=== PATIENT | male | born 1980 | race Caucasian/White ===

== ENCOUNTER 2019-01-08 06:47 | Day surgery (SDC) | payer OTHER, MEDICARE ==
[~2019-01-08] VITALS: Ht 172.7 cm; Wt 118.2 kg
[~2019-01-08 06:47] MED LIST: RINGERS SOLUTION,LACTATED 1,000 ML IV ONE
[2019-01-08] MEDS ORDERED: RINGERS SOLUTION,LACTATED 1,000 ML IV ONE (07:00)
[2019-01-08] MEDS ORDERED: MULT1TAB66 PO (07:11)
[2019-01-08] MEDS ORDERED: LORA1TAB3 PO (07:11)
[2019-01-08] MEDS ORDERED: RISP.5 PO (07:11)
[2019-01-08] MEDS ORDERED: HALO10 PO (07:11)
[2019-01-08] MEDS ORDERED: BENZ1TAB10 PO (07:11)
[2019-01-08] MEDS ORDERED: METF-960 PO (07:12)
[2019-01-08] MEDS ORDERED: SODIUM CHLORIDE 0.9% 1,000 ML IV ONE (08:05)
[2019-01-08 08:24] LABS: GLUCOMETER DEV NAME(LOC) PACU.; GLUCOSE,POINT OF CARE 123 MG/DL (70-110)
[2019-01-08] MEDS ORDERED: SUGAMMADEX SODIUM 200 MG/2 ML VIAL IVP ONE (08:37)
[2019-01-08 08:39] LABS: BASOPHILS % (AUTO) 0.4 % (0.0-2.0); EOSINOPHILS % (AUTO) 2.2 % (1.0-6.0); HEMATOCRIT 38.4 % (41-53); HEMOGLOBIN 12.8 g/dL (13.5-17.5); LYMPHOCYTES # (AUTO) 1.1 K/uL (1.0-4.8); LYMPHOCYTES % (AUTO) 16.2 % (22.0-44.0); MEAN CORPUSCULAR HEMOGLOBIN 30.6 pg (26.0-34.0); MEAN CORPUSCULAR HGB CONC 33.4 G/dL (31.0-37.0); MEAN CORPUSCULAR VOLUME 92 fL (80-100); MONOCYTES # (AUTO) 0.4 K/uL (0.1-1.0); MONOCYTES % (AUTO) 6.1 % (2.0-9.0); NEUTROPHILS % (AUTO) 75.1 % (40.0-70.0); PLATELET COUNT (AUTO) 190 K/uL (150-450); RED CELL DISTRIBUTION WIDTH 13.4 % (11.5-14.5)
[2019-01-08 08:48] LABS: ANION GAP 12 mmol/L (8-16); CALCIUM, TOTAL 8.8 mg/dL (8.8-10.5); CARBON DIOXIDE 23 mmol/L (22-29); CHLORIDE 106 mmol/L (98-107); CREATININE 0.97 mg/dL (0.60-1.30); GLOMERULAR FILTR. RATE CALC > 60 mL/min (>60); GLUCOSE,RANDOM 125 mg/dL (70-110); POTASSIUM 3.6 mmol/L (3.5-5.1); SODIUM SERUM 141 mmol/L (136-145); UREA NITROGEN, BLOOD 18 mg/dL (7-18)
[2019-01-08] MEDS ORDERED: AMPICILLIN SODIUM 1 GM/VIAL ONE (08:50)
[2019-01-08 08:51] LABS: PROTHROMBIN TIME 10.5 SEC (9.4-11.6)
[2019-01-08] MEDS ORDERED: SODIUM CHLORIDE 0.9% 20 ML ONE (08:52)
[2019-01-08 08:55] LABS: ALANINE AMINOTRANSFERASE 14 U/L (12-78); ALBUMIN 3.5 g/dL (3.4-5.0); ALKALINE PHOSPHATASE 61 U/L (46-116); ASPARTATE AMINOTRANSFERASE 11 U/L (15-37); BILIRUBIN,TOTAL 0.3 mg/dL (0.1-1.0); TOTAL PROTEIN, SERUM 6.9 g/dL (6.4-8.2)
[2019-01-08] MEDS ORDERED: PROPOFOL 1% 20 ML VIAL IVP ONE (12:00)
[2019-01-08] MEDS ORDERED: KETAMINE HCL 50 MG/ML 10 ML VIAL IVP ONE (12:00)
[2019-01-08] MEDS ORDERED: ONDANSETRON HCL 4 MG/2 ML VIAL IVP ONE (12:00)
[2019-01-08] MEDS ORDERED: ROCURONIUM BROMIDE 10 MG/ML 5 ML VIAL IVP ONE (12:00)
[2019-01-08] MEDS ORDERED: FentaNYL CITRATE-PF 100 MCG/2 ML VIAL IVP ONE (12:00)
[2019-01-08] MEDS ORDERED: DEXAMETHASONE SOD PHOS 4 MG/ML VIAL IVP ONE (12:00)
[2019-01-08] MEDS ORDERED: LIDOCAINE/PF 2% 5 ML VIAL INJ ONE (12:00)
== END 2019-01-08 13:00 | disposition home or self-care (01) ==
LOC: SURGERY 06:47
PROVIDERS: ATTEND Dentist General Practice
DX: K05.30 Chronic periodontitis, unspecified (principal); G40.909 Epilepsy, unspecified, not intractable, without status epilepticus; K21.9 Gastro-esophageal reflux disease without esophagitis; E66.9 Obesity, unspecified; F41.9 Anxiety disorder, unspecified; Z79.899 Other long term (current) drug therapy; Z98.890 Other specified postprocedural states
CPT/HCPCS: 36415; 41899; 71045; 80053; 80173; 80342; 82962; 85025; 85610; 85730; 93005; J0290; J1100; J2405; J2704; J3010; J3490 ×3; J7030; J7120

== ENCOUNTER 2019-02-10 13:39 | Inpatient (IN) | payer MEDICARE, MEDICAID ==
[~2019-02-10] VITALS: Ht 177.8 cm; Wt 101.9 kg
[~2019-02-10 13:39] MED LIST changes: +BENZ1TAB10 PO; +HALO10 PO; +LORA1TAB3 PO; +METF-960 PO; +MULT1TAB66 PO; -RINGERS SOLUTION,LACTATED 1,000 ML IV ONE; +RISP.5 PO
[2019-02-10] MEDS ORDERED: HALO2 PO (13:50)
[2019-02-10] MEDS ORDERED: HALO5TAB2 PO (13:50)
[2019-02-10] MEDS ORDERED: RISP2 PO (13:50)
[2019-02-10] MEDS ORDERED: DiphenhydrAMINE HCL 50 MG/ML VIAL IM ONE (14:00)
[2019-02-10] MEDS ORDERED: LORazepam 2 MG/ML VIAL IM ONE ×2 (14:00→17:15)
[2019-02-10] MEDS ORDERED: HALOPERIDOL LACTATE 5 MG/ML VIAL IM ONE ×2 (14:00→17:15)
[2019-02-10] MEDS ORDERED: LORazepam 2 MG TABLET PO PRN (18:15)
[2019-02-10] MEDS ORDERED: HALOPERIDOL 5 MG TABLET PO PRN (18:15)
[2019-02-10] MEDS ORDERED: ZOLPIDEM TARTRATE 10 MG TABLET PO PRN (18:15)
[2019-02-10 19:05] LABS: BASOPHILS % (AUTO) 0.4 % (0.0-2.0); EOSINOPHILS % (AUTO) 0.8 % (1.0-6.0); HEMATOCRIT 39.7 % (41-53); HEMOGLOBIN 13.2 g/dL (13.5-17.5); LYMPHOCYTES # (AUTO) 1.3 K/uL (1.0-4.8); LYMPHOCYTES % (AUTO) 11.8 % (22.0-44.0); MEAN CORPUSCULAR HEMOGLOBIN 30.3 pg (26.0-34.0); MEAN CORPUSCULAR HGB CONC 33.3 G/dL (31.0-37.0); MEAN CORPUSCULAR VOLUME 91 fL (80-100); MONOCYTES # (AUTO) 0.5 K/uL (0.1-1.0); MONOCYTES % (AUTO) 5.1 % (2.0-9.0); NEUTROPHILS # (AUTO) 8.7 K/uL (1.8-7.7); NEUTROPHILS % (AUTO) 81.9 % (40.0-70.0); PLATELET COUNT (AUTO) 238 K/uL (150-450); RED BLOOD CELL COUNT(AUTO) 4.36 MIL/uL (4.50-5.90); RED CELL DISTRIBUTION WIDTH 13.7 % (11.5-14.5)
[2019-02-10 19:14] LABS: GLUCOSE,POINT OF CARE 120 MG/DL (70-110)
[2019-02-10 19:15] LABS: ANION GAP 15 mmol/L (8-16); CALCIUM, TOTAL 9.1 mg/dL (8.8-10.5); CARBON DIOXIDE 23 mmol/L (22-29); CHLORIDE 107 mmol/L (98-107); CREATININE 1.14 mg/dL (0.60-1.30); GLOMERULAR FILTR. RATE CALC > 60 mL/min (>60); GLUCOSE,RANDOM 115 mg/dL (70-110); POTASSIUM 3.7 mmol/L (3.5-5.1); SODIUM SERUM 145 mmol/L (136-145); UREA NITROGEN, BLOOD 12 mg/dL (7-18)
[2019-02-10 19:22] LABS: ALANINE AMINOTRANSFERASE 19 U/L (12-78); ALBUMIN 3.7 g/dL (3.4-5.0); ALKALINE PHOSPHATASE 65 U/L (46-116); ASPARTATE AMINOTRANSFERASE 41 U/L (15-37); BILIRUBIN,TOTAL 0.4 mg/dL (0.1-1.0); TOTAL PROTEIN, SERUM 7.3 g/dL (6.4-8.2)
[2019-02-10 22:49] VITALS: BP 128/81
[2019-02-11] MEDS ORDERED: IBUPROFEN 400 MG TABLET PO PRN (06:30)
[2019-02-11] MEDS ORDERED: CloNIDine HCL 0.1 MG TABLET PO PRN (06:30)
[2019-02-11] MEDS ORDERED: ONDANSETRON HCL 4 MG TABLET PO PRN (06:30)
[2019-02-11] MEDS ORDERED: PETROLATUM,WHITE 28 GM JELLY TP PRN (06:30)
[2019-02-11] MEDS ORDERED: GuaiFENesin/D-METHORPHAN [SUGAR-FREE] 200-20MG/10 ML SYRUP UDCUP PO PRN (06:30)
[2019-02-11] MEDS ORDERED: LOPERAMIDE HCL 2 MG CAPSULE PO PRN (06:30)
[2019-02-11] MEDS ORDERED: ALBUTEROL SULFATE HFA 90 MCG/PUFF 8 GM INHALER IH PRN (06:30)
[2019-02-11] MEDS ORDERED: NICOTINE 14 MG/24 HOUR PATCH TD PRN (06:30)
[2019-02-11] MEDS ORDERED: DOCUSATE SODIUM 100 MG CAPSULE PO PRN (06:30)
[2019-02-11] MEDS: BENZTROPINE MESYLATE 1 MG TABLET PO SCH ×2 (10:30→16:59)
[2019-02-11] MEDS: LORazepam 1 MG TABLET PO SCH (10:30)
[2019-02-11] MEDS ORDERED: LORazepam 2 MG/ML VIAL IM ONE ×2 (10:45→18:15)
[2019-02-11] MEDS ORDERED: DiphenhydrAMINE HCL 50 MG/ML VIAL IM ONE ×2 (10:45→18:15)
[2019-02-11] MEDS ORDERED: HALOPERIDOL LACTATE 5 MG/ML VIAL IM ONE ×2 (10:45→18:15)
[2019-02-11] MEDS ORDERED: RisperiDONE 3 MG TABLET PO SCH (13:00)
[2019-02-11] MEDS: RisperiDONE CONC 3 MG/3 ML SOLUTION ORAL.SYG PO SCH ×2 (13:00→21:55)
[2019-02-11] MEDS ORDERED: HALOPERIDOL 5 MG TABLET PO SCH (13:00)
[2019-02-11] MEDS: HALOPERIDOL LACTATE 10 MG/5 ML SOLUTION UDCUP PO SCH ×2 (13:57→16:59)
[2019-02-11] MEDS: MetFORMIN HCL 500 MG TABLET PO SCH (16:59)
[2019-02-12] MEDS: HALOPERIDOL LACTATE 10 MG/5 ML SOLUTION UDCUP PO SCH ×3 (09:27→16:45)
[2019-02-12] MEDS: LORazepam 1 MG TABLET PO SCH (09:27)
[2019-02-12] MEDS: BENZTROPINE MESYLATE 1 MG TABLET PO SCH ×2 (09:27→16:45)
[2019-02-12] MEDS: RisperiDONE CONC 3 MG/3 ML SOLUTION ORAL.SYG PO SCH ×3 (09:27→16:45)
[2019-02-12] MEDS: MetFORMIN HCL 500 MG TABLET PO SCH ×2 (09:27→16:45)
[2019-02-12] MEDS ORDERED: LORazepam 2 MG/ML VIAL ONE (18:39)
[2019-02-12] MEDS ORDERED: HALOPERIDOL LACTATE 5 MG/ML VIAL ONE (18:40)
[2019-02-12] MEDS ORDERED: DiphenhydrAMINE HCL 50 MG/ML VIAL ONE (18:40)
[2019-02-12] MEDS ORDERED: HALOPERIDOL LACTATE 5 MG/ML VIAL IM ONE (18:45)
[2019-02-12] MEDS ORDERED: DiphenhydrAMINE HCL 50 MG/ML VIAL IM ONE (18:45)
[2019-02-12] MEDS ORDERED: LORazepam 2 MG/ML VIAL IM ONE (18:45)
[2019-02-13] MEDS: MetFORMIN HCL 500 MG TABLET PO SCH (06:54)
[2019-02-13] MEDS: RisperiDONE CONC 3 MG/3 ML SOLUTION ORAL.SYG PO SCH (10:13)
[2019-02-13] MEDS: BENZTROPINE MESYLATE 1 MG TABLET PO SCH (10:13)
[2019-02-13] MEDS: HALOPERIDOL LACTATE 10 MG/5 ML SOLUTION UDCUP PO SCH (10:13)
[2019-02-13] MEDS: LORazepam 1 MG TABLET PO SCH (10:13)
== END 2019-02-13 12:30 | disposition home or self-care (01) | DRG 885 ==
LOC: EMS 13:41 → B3A 22:00
PROVIDERS: ADMIT Psychiatry & Neurology Psychiatry; ATTEND Psychiatry & Neurology Psychiatry
DX: F25.0 Schizoaffective disorder, bipolar type (principal); G25.9 Extrapyramidal and movement disorder, unspecified; D64.9 Anemia, unspecified; E11.9 Type 2 diabetes mellitus without complications; F79 Unspecified intellectual disabilities; F84.0 Autistic disorder; R45.87 Impulsiveness; R74.0 Nonspecific elevation of levels of transaminase and lactic acid dehydrogenase [LDH]; Z79.899 Other long term (current) drug therapy
CPT/HCPCS: 96372; 99291; G0480; J1200; J1630; J2060; J3230

== ENCOUNTER 2022-04-26 06:37 | Day surgery (SDC) | payer OTHER, MEDICARE ==
[~2022-04-26] VITALS: Ht 172.7 cm; Wt 109.1 kg
[~2022-04-26 06:37] MED LIST changes: -BENZ1TAB10 PO; +BENZ1TAB96 PO; -HALO10 PO; +HALO2 PO; -LORA1TAB3 PO; +METF-1211 PO; -METF-960 PO; -MULT1TAB66 PO; -RISP.5 PO; +RISP2TAB45 PO
[2022-04-26] MEDS ORDERED: RINGERS SOLUTION,LACTATED 1,000 ML IV ONE ×2 (07:00→07:08)
[2022-04-26] MEDS ORDERED: AMPICILLIN SODIUM 2 GM/NS 100 ML IV ONE (07:22)
[2022-04-26] MEDS ORDERED: MIDAZOLAM HCL 5 MG/ML VIAL ONE (07:27)
[2022-04-26 07:39] LABS: COVID AG,FIA SOURCE NASOPHARYNGEAL
[2022-04-26] MEDS ORDERED: LORA-1000 PO (07:57)
[2022-04-26] MEDS ORDERED: DIVA-80 PO (07:58)
[2022-04-26 08:00] LABS: BASOPHILS % (AUTO) 0.3 % (0.0-2.0); EOSINOPHILS % (AUTO) 2.8 % (1.0-6.0); HEMATOCRIT 38.4 % (41-53); HEMOGLOBIN 12.9 g/dL (13.5-17.5); MEAN CORPUSCULAR HEMOGLOBIN 33.2 pg (26.0-34.0); MEAN CORPUSCULAR HGB CONC 33.7 G/dL (31.0-37.0); MEAN CORPUSCULAR VOLUME 99 fL (80-100); MONOCYTES # (AUTO) 0.4 K/uL (0.1-1.0); NEUTROPHILS # (AUTO) 2.6 K/uL (1.8-7.7); NEUTROPHILS % (AUTO) 63.9 % (40.0-70.0); PLATELET COUNT (AUTO) 97 K/uL (150-450); RED CELL DISTRIBUTION WIDTH 14.4 % (11.5-14.5)
[2022-04-26] MEDS ORDERED: DIVA-85 PO (08:00)
[2022-04-26 08:12] LABS: INR 1.1 (0.9-1.1); PROTHROMBIN TIME 11.5 SEC (9.4-11.6)
[2022-04-26 08:29] LABS: ANION GAP 11 mmol/L (8-16); CALCIUM, TOTAL 9.2 mg/dL (8.8-10.5); CARBON DIOXIDE 23 mmol/L (22-29); CHLORIDE 103 mmol/L (98-107); CREATININE 0.34 mg/dL (0.60-1.30); GLUCOSE,RANDOM 95 mg/dL (70-110); POTASSIUM 3.4 mmol/L (3.5-5.1); SODIUM SERUM 137 mmol/L (136-145); UREA NITROGEN, BLOOD 19 mg/dL (7-18)
[2022-04-26 08:30] LABS: GLOMERULAR FILTR. RATE CALC > 60 mL/min (>60)
[2022-04-26] MEDS ORDERED: KETAMINE HCL 50 MG/ML 10 ML VIAL IVP ONE (12:00)
[2022-04-26] MEDS ORDERED: ONDANSETRON HCL 4 MG/2 ML VIAL IVP ONE (12:00)
[2022-04-26] MEDS ORDERED: FentaNYL CITRATE PF 100 MCG/2 ML VIAL IVP ONE (12:00)
[2022-04-26] MEDS ORDERED: MIDAZOLAM HCL 2 MG/2 ML VIAL IVP ONE (12:00)
[2022-04-26] MEDS ORDERED: PROPOFOL 1% 20 ML VIAL IVP ONE (12:00)
[2022-04-26] MEDS ORDERED: LIDOCAINE/PF 2% 5 ML VIAL IM ONE (12:00)
== END 2022-04-26 11:10 | disposition home or self-care (01) ==
LOC: SURGERY 06:37
PROVIDERS: ATTEND Dentist General Practice
DX: K05.30 Chronic periodontitis, unspecified (principal); K02.9 Dental caries, unspecified; F41.9 Anxiety disorder, unspecified; E11.9 Type 2 diabetes mellitus without complications; K59.00 Constipation, unspecified; K03.6 Deposits [accretions] on teeth; G40.909 Epilepsy, unspecified, not intractable, without status epilepticus; Z79.01 Long term (current) use of anticoagulants; Z79.899 Other long term (current) drug therapy; Z98.890 Other specified postprocedural states
CPT/HCPCS: 41899; 71045; 87426; 80048; 85025; 85610; 85730; 36415; 93005; J0290; J2704; J3010; J3490 ×2; J2250 ×2; J2405; J7120; C9803